=== PATIENT | male | born 1955 | race Caucasian/White ===

== ENCOUNTER 2017-05-20 20:20 | Inpatient (IN) | payer OTHER ==
[2017-05-20 20:44] LABS: #Lymphocytes 2.1 thou/uL (1.20-3.40); #Monocytes 0.7 thou/uL (0.11-0.59); #Neutrophils 5.2 thou/uL (1.40-6.50); %Basophils 0.3 % (0.0-1.0); %Eosinophils 0.5 % (0.0-10.0); %Lymphocytes 26.1 % (21.0-51.0); %Monocytes 8.5 % (0.0-10.0); %Neutrophils 64.6 % (42.0-75.0); Hemoglobin 13.4 g/dL (14.0-18.0); Mean Corpuscular HGB CONC 34.3 g/dL (32.0-36.0); Mean Corpuscular Hemoglobin 32.6 pg (27.0-31.0); Mean Corpuscular Volume 95.1 fl (80.0-94.0); Mean Platelet Volume 7.3 fL (7.4-10.4); Platelet Count 180 thou/uL (130-400); RBC Distribution Width 12.6 % (11.5-14.5); Red Blood Cell (RBC) Count 4.09 mill/uL (4.70-6.10)
[2017-05-20 20:50] LABS: INR-International Normal Ratio 1.1; PTT 28.6 SEC (22.9-36.1); Prothrombin Time 14.2 SEC (12.0-14.7)
[2017-05-20 21:00] LABS: ALT (SGPT) 19 U/L (8-55); AST (SGOT) 19 U/L (5-34); Acetaminophen Less than 6.0 mcg/mL (10.0-30.0); Albumin 4.6 g/dL (3.4-4.8); Alcohol Less than 10 mg/dL (Less than 10); Alkaline Phosphatase 75 U/L (40-150); Anion Gap 14 mmol/L (10-20); BUN (Urea Nitrogen) 11 mg/dL (8.4-25.7); Bilirubin, Total 1.7 mg/dL (0.2-1.2); CK (CPK) 141 U/L (30-200); Calc. Creatinine Clearance 0 mL/min (70-130); Calcium 9.4 mg/dL (7.8-10.44); Carbon Dioxide 22 mmol/L (23-31); Chloride 103 mmol/L (98-107); Estimated GFR-MDRD 60; Globulin 2.8 g/dL (2.4-3.5); Glucose 138 mg/dL (80-115); Lipase 48 U/L (8-78); Magnesium 1.9 mg/dL (1.6-2.6); Potassium 3.8 mmol/L (3.5-5.1); Protein, Total 7.4 g/dL (5.8-8.1); Salicylate Less than 8.0 mg/dL (15.0-30.0); Sodium 135 mmol/L (136-145)
[2017-05-20 21:03] LABS: CKMB 1.2 ng/mL (0-6.6); Troponin I Less than 0.010 ng/mL (< 0.028)
--- NOTE | 2017-05-20 21:20 | RAD ---
SINGLE VIEW OF THE CHEST 05/20/17 COMPARISON: 12/29/07 HISTORY: Weakness and confusion. Headache since yesterday. Altered mental status. FINDINGS: Single view of the chest shows normal sized cardiomediastinal silhouette. The patient is status post sternotomy. There is no evidence of consolidation, mass or pleural effusion. IMPRESSION: No evidence of acute cardiopulmonary disease. POS: [facility]
--- NOTE | 2017-05-20 21:27 | CT ---
CT OF THE BRAIN WITHOUT CONTRAST 05/20/17 COMPARISON: None. HISTORY: Weakness and headache and confusion. TECHNIQUE: Multiple contiguous axial images were obtained in a CT of the brain without contrast. FINDINGS: There are bilateral hyperdense subdural hematomas along the frontal and parietal convexities. These m easure 1.7 cm on the left and 1.8 cm on the right. No downward shift or midline herniation is seen. T here is a small amount of blood along the right tentorium. No interventricular hemorrhage is seen. The calvarium and overlying soft tissues are unremarkable. The visualized paranasal sinuses and masto id air cells are well aerated. IMPRESSION: Bilateral subdural hematomas. Dr. Abad notified of the findings at 8:51 p.m. on 05/20/17. POS: [facility]
[2017-05-20] MEDS ORDERED: Ondansetron ODT 4 MG TAB ONE (22:33)
[2017-05-20] MEDS ORDERED: Ondansetron ODT 4 MG TAB PO PRN (22:45)
[2017-05-20] MEDS ORDERED: Dextrose 50% Abboject 50 ML SYRINGE SLOW IVP PRN (22:45)
[2017-05-20] MEDS ORDERED: Dextrose 5% in Water 1,000 ML IV PRN (22:45)
[2017-05-20] MEDS ORDERED: Morphine 4 MG/ML VIAL SLOW IVP PRN (22:55)
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
[2017-05-21 00:32] LABS: Bilirubin Negative (Negative); Blood, Urine Negative (Negative); Clarity CLEAR (Clear); Glucose, Urine (Dipstick) Negative (Negative); Leukocyte Negative (Negative); Nitrite Negative (Negative); Protein, Urine (Dipstick) Negative (Neg-Trace); pH, Urine 6.5 (5.0-9.0)
[2017-05-21 00:51] LABS: Amphetamine Not Detected (NotDetected); Barbiturates Screen Not Detected (NotDetected); Benzodiazepine Screen Not Detected (NotDetected); Cocaine Metabolite Screen Not Detected (NotDetected); Medtox Control Line Valid? VALID (VALID); Medtox Reader # READER 4; Methadone Not Detected (NotDetected); Methamphetamine Not Detected (NotDetected); Opiate Screen Not Detected (NotDetected); Oxycodone Screen Not Detected (NotDetected); Phencyclidine (PCP) Not Detected (NotDetected); THC/Cannabinoid Screen Not Detected (NotDetected); Tricyclic Screen Not Detected (NotDetected)
[2017-05-21 00:53] VITALS: BMI 27.9
[2017-05-21] MEDS: Sodium Chloride 0.9% 1,000 ML IV SCH ×3 (01:10→15:15)
[2017-05-21] MEDS: Acetaminophen 1,000 MG in Premix Bag 1 BAG IVPB SCH ×3 (01:11→13:29)
[2017-05-21 05:48] LABS: #Eosinphils 0.1 thou/uL (0.0-0.7); #Lymphocytes 1.6 thou/uL (1.20-3.40); #Monocytes 0.5 thou/uL (0.11-0.59); #Neutrophils 2.7 thou/uL (1.40-6.50); %Basophils 0.5 % (0.0-1.0); %Eosinophils 1.5 % (0.0-10.0); %Lymphocytes 33.4 % (21.0-51.0); %Monocytes 10.1 % (0.0-10.0); %Neutrophils 54.5 % (42.0-75.0); Hemoglobin 11.9 g/dL (14.0-18.0); Mean Corpuscular HGB CONC 34.5 g/dL (32.0-36.0); Mean Corpuscular Hemoglobin 32.9 pg (27.0-31.0); Mean Corpuscular Volume 95.4 fl (80.0-94.0); Mean Platelet Volume 7.1 fL (7.4-10.4); Platelet Count 138 thou/uL (130-400); RBC Distribution Width 12.6 % (11.5-14.5); White Blood Cell (WBC) Count 4.9 thou/uL (4.8-10.8)
[2017-05-21 06:03] LABS: Anion Gap 11 mmol/L (10-20); BUN (Urea Nitrogen) 10 mg/dL (8.4-25.7); Calc. Creatinine Clearance 0 mL/min (70-130); Carbon Dioxide 24 mmol/L (23-31); Chloride 106 mmol/L (98-107); Estimated GFR-MDRD 68; Glucose 108 mg/dL (80-115); Potassium 3.9 mmol/L (3.5-5.1); Sodium 137 mmol/L (136-145)
[2017-05-21] MEDS ORDERED: Sodium Chloride 0.9% 0 ML ONE ×2 (06:24→06:29)
[2017-05-21] MEDS ORDERED: Thrombin 5000 UNITS/5 ML VIAL ONE (06:24)
[2017-05-21] MEDS ORDERED: Lidocaine 0.5%/Epinephrine 1:200,000 50 ml Vial ONE ×2 (06:24→06:29)
[2017-05-21] MEDS ORDERED: Bacitracin Zinc Ointment 30 gm TUBE ONE ×2 (06:24→06:29)
[2017-05-21] MEDS ORDERED: CEFAZOLIN/Water 2 GM/20 ML SYRINGE ONE (06:28)
[2017-05-21] MEDS ORDERED: Fentanyl 250 MCG/5 ML VIAL ONE ×2 (07:21→09:00)
[2017-05-21] MEDS ORDERED: Promethazine HCl 25 MG/ML VIAL IM PRN (08:32)
[2017-05-21] MEDS ORDERED: Ondansetron HCl/PF 4 MG/2 ML Vial IVP PRN (08:32)
[2017-05-21] MEDS ORDERED: Promethazine HCl 25 MG/ML VIAL SLOW IVP PRN (08:32)
--- NOTE | 2017-05-21 08:36 | PRG ---
DATE OF SERVICE: 05/21/2017 The patient is seen and examined. I agree with Sherrie Horta'sCATHIE, note. HISTORY OF PRESENT ILLNESS: Mr. Cabrera is a 61-year-old male with a documented trauma approximately 5 weeks ago who was on Plavix and aspirin for his coronary artery disease and has become progressive ly confused over the past 24-48 hours. He has no specific focal findings. CT scan revealed large bi lateral isodense subdural hematomas. ASSESSMENT AND PLAN: The patient has subacute bilateral chronic subdural hematomas that will require surgical drainage. I discussed the indications, alternatives with the patient and his family and th ey expressed understanding and wished to proceed. They understand that it is possible that the evacu ation will be incomplete or he will have recurrence, and ultimately require additional procedures. W e will have to hold Plavix and aspirin indefinitely.
[2017-05-21] MEDS ORDERED: ePHEDrine/0.9% NaCl/PF SYRINGE 50 mg/10 ml ONE (08:37)
[2017-05-21] MEDS ORDERED: Lidocaine 1% PF 5 ML VIAL ONE (08:37)
[2017-05-21] MEDS ORDERED: Propofol 200 MG/20 ML VIAL ONE (08:37)
[2017-05-21] MEDS ORDERED: Ondansetron HCl/PF 4 MG/2 ML Vial ONE (08:37)
--- NOTE | 2017-05-21 08:49 | OP ---
DATE OF PROCEDURE: 05/21/2017 SURGEON: Omid Sharp M.D. PSYCHIATRIC TECH: Sigrid Black PROCEDURE: Bilateral jd hole drainage with chronic subdural hematoma. PROCEDURE IN DETAIL: The patient was brought to the operating room and intubated. He was positioned supine and head in modest extension on a gel-filled donut. Two incisions were made in the mid pupil star line and slightly lateral to this, 2 on the right and 2 on the left and jd holes were placed. The dura was incised and brisk elizabeth subdural hematoma was evacuated from all four jd holes. On t he right, the fluid was under substantial pressure completely evacuated and the subdural space thorou ghly irrigated until clear. We did seem to be some layers from prior membranes deep on the cortical surface and the brain did not seem to expand significantly. On the left, the brain did expand partic ularly posteriorly after drainage and irrigation of the subdural space. Next, drains were left in th e subdural space bilaterally. Gelfoam pledgets were used to cover the jd holes. The wounds were e xtensively irrigated and then closed in anatomic layers.
[2017-05-21] MEDS ORDERED: Famotidine/PF 20 mg/2ml Vial SLOW IVP SCH (09:00)
[2017-05-21] MEDS ORDERED: Fentanyl 100 MCG/2 ML VIAL ONE (09:53)
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
[2017-05-21] MEDS ORDERED: hydrALAZINE 20 MG/ML VIAL ONE (10:16)
[2017-05-21] MEDS: Cyanocobalamin (Vitamin B-12) 1,000 MCG TAB PO SCH (11:30)
[2017-05-21] MEDS: Folic Acid 1 MG TAB PO SCH (11:30)
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
[2017-05-21] MEDS: Ondansetron HCl/PF 4 MG/2 ML Vial IVP PRN (12:07)
[2017-05-21] MEDS: CEFAZOLIN/Water 2 GM/20 ML SYRINGE SLOW IVP SCH ×2 (14:20→21:02)
[2017-05-21] MEDS ORDERED: traMADol HCl 50 MG TAB PO PRN ×2 (14:49)
[2017-05-21] MEDS: Acetaminophen 500 MG TAB PO SCH (19:43)
[2017-05-21] MEDS: Famotidine 20 MG TAB PO SCH (20:49)
[2017-05-21] MEDS: Senokot S 8.6-50 MG TAB PO SCH (20:49)
[2017-05-22] MEDS: Sodium Chloride 0.9% 1,000 ML IV SCH ×2 (00:04→08:29)
[2017-05-22] MEDS: Acetaminophen 500 MG TAB PO SCH ×4 (00:04→18:21)
[2017-05-22] MEDS: Ondansetron HCl/PF 4 MG/2 ML Vial IVP PRN ×3 (01:35→17:34)
[2017-05-22] MEDS: CEFAZOLIN/Water 2 GM/20 ML SYRINGE SLOW IVP SCH ×2 (05:02→13:51)
[2017-05-22] MEDS: hydrALAZINE 20 MG/ML VIAL SLOW IVP PRN ×2 (06:46→13:54)
[2017-05-22] MEDS: Famotidine 20 MG TAB PO SCH ×2 (08:28→22:03)
[2017-05-22] MEDS: Losartan 25 MG TAB PO SCH (08:28)
[2017-05-22] MEDS: Senokot S 8.6-50 MG TAB PO SCH ×2 (08:29→22:05)
[2017-05-22] MEDS: Folic Acid 1 MG TAB PO SCH (08:29)
[2017-05-22] MEDS: Cyanocobalamin (Vitamin B-12) 1,000 MCG TAB PO SCH (08:29)
[2017-05-22] MEDS: Multivitamin W/ Minerals 1 TAB PO SCH (08:29)
--- NOTE | 2017-05-22 08:47 | CT ---
PRELIMINARY REPORT/[facility]/EMERGENCY AFTER HOURS PROCEDURE: EXAM: CT Head Without Intravenous Contrast CLINICAL HISTORY: 61 years old, male; Pain; Headache; Headache not specified; Prior surgery; Surgery date: Postoperativ e (0-2 days); Surgery type: Sdh evacuation; Patient HX: Status post surgery TECHNIQUE: Axial computed tomography images of the head/brain without intravenous contrast. COMPARISON: CT Brain WO Con 2017-05-20 20:41 FINDINGS: Brain: Interval bifrontal jd hole contruction with placement of subdural drains. Although large karli ateral subdural collections persist, they have significantly decreased in size. The majority of the c ollections now are of low density with scattered smaller hemorrhagic components. Mild pneumocephalus. No acute stroke or parenchymal bleed. No midline shift or axial herniation. No hydrocephalus. Ventricles: See above. Bones/joints: See above. Soft tissues: No acute findings. Sinuses: Unremarkable as visualized. No acute sinusitis. Mastoid air cells: Unremarkable as visualized. No mastoid effusion. IMPRESSION: Satisfactory postoperative changes. Decrease in size of subdural collections post drainage / jd hol e construction. No acute stroke. No midline shift or axial herniation. No hydrocephalus. Thank you for allowing us to participate in the care of your patient. Dictated and Authenticated by: Alejandro Sanford MD 05/22/2017 4:11 AM Central Time ([place] & [place]) FINAL REPORT HEAD CT WITHOUT CONTRAST: Date: 05-22-17 Comparison: 05-20-17 History: Evaluate following subdural hematoma evacuation. FINDINGS: The visualized paranasal sinuses/mastoid air cells are well aerated. There are two frontal jd holes present bilaterally, new. Bilateral scalp cutaneous cyndi are seen near the vertex. Bilateral subdural drainage catheters are present. There is bilateral subdural pneu mocephalus anterior to frontal lobes extending to vertex. Acute on chronic bilateral subdural hematom as are present. This subdural collection of mixed attenuation measures up to 1.5 cm in transverse dim ension on the right, decreased from 1.8 cm on the prior exam. Subdural collection of mixed attenuatio n measures 1.4 cm transverse imaging on left, decreased from 1.7 cm. There is hyperdensity in the reg ion of the posterior fossa on the right on Image 11 which suggests blood layering on the tentorium on the right. Continued follow up advised. Stable bifrontal mass effect with flattening of both frontal lobes. IMPRESSION: Large bilateral subdural fluid collections are noted which contain both hypodense fluid and hyperdens e acute blood. Subdural collections are decreased in size since prior exam. Continued follow up advis ed. Probable blood layering on right tentorium. Code QA POS: [facility]
[2017-05-22] MEDS: traMADol HCl 50 MG TAB PO SCH ×3 (08:48→22:04)
[2017-05-22] MEDS: Scopolamine 1.5 mg/72 hour Patch TD SCH (08:50)
[2017-05-22 09:27] LABS: #Lymphocytes 0.5 thou/uL (1.20-3.40); #Monocytes 0.3 thou/uL (0.11-0.59); #Neutrophils 9.1 thou/uL (1.40-6.50); %Eosinophils 0.4 % (0.0-10.0); %Lymphocytes 5.1 % (21.0-51.0); %Monocytes 3.4 % (0.0-10.0); Mean Corpuscular Hemoglobin 31.4 pg (27.0-31.0); Mean Platelet Volume 7.7 fL (7.4-10.4); Platelet Count 171 thou/uL (130-400); RBC Distribution Width 13.1 % (11.5-14.5); Red Blood Cell (RBC) Count 3.81 mill/uL (4.70-6.10)
[2017-05-22 09:36] LABS: Anion Gap 16 mmol/L (10-20); BUN (Urea Nitrogen) 10 mg/dL (8.4-25.7); Calc. Creatinine Clearance 0 mL/min (70-130); Calcium 8.4 mg/dL (7.8-10.44); Carbon Dioxide 13 mmol/L (23-31); Chloride 110 mmol/L (98-107); Estimated GFR-MDRD 75; Glucose 177 mg/dL (80-115); Magnesium 1.9 mg/dL (1.6-2.6); Phosphorus 2.8 mg/dL (2.3-4.7); Potassium 4.1 mmol/L (3.5-5.1); Sodium 135 mmol/L (136-145)
[2017-05-22 09:43] LABS: MDiff Complete? YES; Macrocytosis SLIGHT = 6-15 cells (100X) (0-5/hpf); PLT Morphology Comment Appears Adequate; Polychromasia SLIGHT = 2-3 cells (100X) (0-2/hpf)
[2017-05-22] MEDS: traMADol HCl 50 MG TAB PO PRN ×2 (12:02→18:31)
--- NOTE | 2017-05-22 14:54 | PRG ---
DATE OF SERVICE: 05/22/2017 Mr. Cabrera is now postoperative day #1, having undergone bilateral frontal parietal bur hole placeme nt for bilateral subdural hematoma evacuation. The patient is currently doing well postoperatively. He has two KAILEY drains in place. He denies headache, nausea, vomiting, or blurred vision. No weaknes s in any of the extremities. He follows commands in all 4 extremities. Pupils are equal, round, and reactive bilaterally. Continues to have a Barbara head wrap on and both KAILEY drains are in place. Hi s speech is clear and he is oriented to person, place and time. The plan now as discussed with our trauma services is activity as tolerated. PT, OT and rehab consul ts. More than likely, we will remove the patient's KAILEY drain tomorrow. We will continue Ancef at thi s time. We will also watch for any possible alcohol DTs. Repeat head CT today shows a decrease in b ilateral subdural collections with bilateral KAILEY drains in place. Please call with any questions or c hanges in patient's neurologic status. Otherwise tomorrow, we hope to get the patient to floor and r emove his drains.
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
[2017-05-23] MEDS: CEFAZOLIN/Water 2 GM/20 ML SYRINGE SLOW IVP SCH ×5 (00:47→21:35)
[2017-05-23] MEDS: Acetaminophen 500 MG TAB PO SCH ×4 (00:47→17:49)
[2017-05-23] MEDS: Ondansetron HCl/PF 4 MG/2 ML Vial IVP PRN (04:15)
[2017-05-23] MEDS: traMADol HCl 50 MG TAB PO SCH ×4 (04:16→20:20)
[2017-05-23 04:57] LABS: Anion Gap 12 mmol/L (10-20); BUN (Urea Nitrogen) 11 mg/dL (8.4-25.7); Calc. Creatinine Clearance 0 mL/min (70-130); Carbon Dioxide 22 mmol/L (23-31); Chloride 107 mmol/L (98-107); Estimated GFR-MDRD 77; Glucose 132 mg/dL (80-115); Magnesium 2.2 mg/dL (1.6-2.6); Phosphorus 2.6 mg/dL (2.3-4.7); Potassium 3.8 mmol/L (3.5-5.1); Sodium 137 mmol/L (136-145)
[2017-05-23] MEDS: hydrALAZINE 20 MG/ML VIAL SLOW IVP PRN (05:04)
[2017-05-23] MEDS ORDERED: Potassium Chloride 20 MEQ TAB PO SCH (07:15)
[2017-05-23] MEDS: Losartan 25 MG TAB PO SCH (08:20)
[2017-05-23] MEDS: Cyanocobalamin (Vitamin B-12) 1,000 MCG TAB PO SCH (08:21)
[2017-05-23] MEDS: Senokot S 8.6-50 MG TAB PO SCH ×2 (08:22→20:19)
[2017-05-23] MEDS: Folic Acid 1 MG TAB PO SCH (08:22)
[2017-05-23] MEDS: Famotidine 20 MG TAB PO SCH ×2 (08:22→20:20)
[2017-05-23] MEDS: Multivitamin W/ Minerals 1 TAB PO SCH (08:22)
[2017-05-23] MEDS ORDERED: Potassium Phosphate 20 MMOL in Sodium Chloride 0.9% 250 ML 250 ML IVPB SCH (08:30)
[2017-05-23] MEDS: Amlodipine 5 MG TAB PO SCH (08:34)
[2017-05-23] MEDS: Sodium Chloride 1 GM TAB PO SCH (08:55)
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
[2017-05-24] MEDS: Acetaminophen 500 MG TAB PO SCH ×4 (00:17→17:34)
[2017-05-24] MEDS: traMADol HCl 50 MG TAB PO SCH ×4 (03:22→20:48)
[2017-05-24] MEDS: CEFAZOLIN/Water 2 GM/20 ML SYRINGE SLOW IVP SCH ×3 (06:13→20:49)
--- NOTE | 2017-05-24 08:24 | PRG ---
DATE OF SERVICE: 05/24/2017 Mr. Cabrera is now postoperative day #3, having undergone bilateral bur hole placement for evacuation of chronic subdural hematoma. The patient was transferred to the floor yesterday and is doing well today. He has some intermittent nausea with moving too quickly in his bed. Otherwise, he has no minerva n complaints. He does have slurred speech, but this may be baseline given a speech impediment. He f ollows commands in all 4 extremities and is oriented to person, place and time. He is actually more conversant and alert today than he was yesterday. Overall, he is improving. I discussed his case in great detail with his son at bedside. At this time, his issue now is disposition. Trauma is following the patient and we appreciate their input. He may continue to work with PT, OT and probably plan for discharge on Friday when arrangemen ts have been made. From a neurosurgical standpoint, he is stable for discharge at any time. Please call with any questions or changes in the patient's neurologic status. Otherwise, he is stable and d oing well.
[2017-05-24] MEDS: Amlodipine 5 MG TAB PO SCH (10:09)
[2017-05-24] MEDS: Folic Acid 1 MG TAB PO SCH (10:09)
[2017-05-24] MEDS: Multivitamin W/ Minerals 1 TAB PO SCH (10:11)
[2017-05-24] MEDS: Losartan 25 MG TAB PO SCH (10:11)
[2017-05-24] MEDS: Cyanocobalamin (Vitamin B-12) 1,000 MCG TAB PO SCH (10:12)
[2017-05-24] MEDS: Famotidine 20 MG TAB PO SCH ×2 (10:12→20:46)
[2017-05-24] MEDS: Senokot S 8.6-50 MG TAB PO SCH ×2 (10:13→20:46)
[2017-05-24] MEDS: Sodium Chloride 1 GM TAB PO SCH (10:24)
--- NOTE | 2017-05-24 13:11 | PRG ---
DATE OF SERVICE: 05/24/2017 SUBJECTIVE: I visited with Mr. Cabrera. He is doing quite well. Postoperative issues of nausea, pa in and confusion are resolving. He is much improved from what it was preoperatively with regard to h is mental status. His walking instability remained a significant issue and he is requiring substanti al assist in this regard. Neurosurgically, he is ready to leave the hospital, but his balance and walking status will not likel y allow him to go directly home. I understand the plans are being made for either rehab or swing bed in [place] and I think this is quite reasonable. I will arrange a followup head CT as well as skin staple removal in 2 weeks. He should hold all anti platelet agents or other blood thinners until that time, at which point we will discuss further.
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
[2017-05-24] MEDS: Ondansetron HCl/PF 4 MG/2 ML Vial IVP PRN (19:34)
[2017-05-25] MEDS: Acetaminophen 500 MG TAB PO SCH ×4 (00:14→17:24)
[2017-05-25] MEDS: traMADol HCl 50 MG TAB PO SCH ×4 (03:20→21:36)
[2017-05-25] MEDS: CEFAZOLIN/Water 2 GM/20 ML SYRINGE SLOW IVP SCH ×3 (05:31→21:38)
[2017-05-25] MEDS ORDERED: Magnesium Citrate 300 ML BOT PO SCH (08:30)
[2017-05-25] MEDS: Bisacodyl 10 MG SUPP PR SCH (09:06)
[2017-05-25] MEDS: Losartan 25 MG TAB PO SCH (09:08)
[2017-05-25] MEDS: Senokot S 8.6-50 MG TAB PO SCH ×2 (09:08→21:37)
[2017-05-25] MEDS: Amlodipine 5 MG TAB PO SCH (09:09)
[2017-05-25] MEDS: Polyethylene Glycol 3350 17 GM Packet PO SCH (09:09)
[2017-05-25] MEDS: Scopolamine 1.5 mg/72 hour Patch TD SCH (09:10)
[2017-05-25] MEDS: Cyanocobalamin (Vitamin B-12) 1,000 MCG TAB PO SCH (09:10)
[2017-05-25] MEDS: Multivitamin W/ Minerals 1 TAB PO SCH (09:10)
[2017-05-25] MEDS: Folic Acid 1 MG TAB PO SCH (09:10)
[2017-05-25] MEDS: Famotidine 20 MG TAB PO SCH ×2 (09:10→21:37)
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
[2017-05-25] MEDS: Sodium Chloride 1 GM TAB PO SCH (10:54)
[2017-05-26] MEDS: Acetaminophen 500 MG TAB PO SCH ×4 (00:05→17:10)
[2017-05-26] MEDS: traMADol HCl 50 MG TAB PO SCH ×4 (03:17→21:46)
[2017-05-26] MEDS: CEFAZOLIN/Water 2 GM/20 ML SYRINGE SLOW IVP SCH ×3 (05:47→22:18)
[2017-05-26] MEDS: Cyanocobalamin (Vitamin B-12) 1,000 MCG TAB PO SCH (09:22)
[2017-05-26] MEDS: Multivitamin W/ Minerals 1 TAB PO SCH (09:23)
[2017-05-26] MEDS: Famotidine 20 MG TAB PO SCH ×2 (09:24→21:46)
[2017-05-26] MEDS: Folic Acid 1 MG TAB PO SCH (09:24)
[2017-05-26] MEDS: Bisacodyl 10 MG SUPP PR SCH (09:24)
[2017-05-26] MEDS: Amlodipine 5 MG TAB PO SCH (09:24)
[2017-05-26] MEDS: Senokot S 8.6-50 MG TAB PO SCH ×2 (09:25→21:52)
[2017-05-26] MEDS: Polyethylene Glycol 3350 17 GM Packet PO SCH (09:25)
[2017-05-26] MEDS: Losartan 25 MG TAB PO SCH (15:33)
[2017-05-26] MEDS: Sodium Chloride 1 GM TAB PO SCH (17:11)
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
[2017-05-27] MEDS: Acetaminophen 500 MG TAB PO SCH ×5 (01:02→23:19)
[2017-05-27] MEDS: traMADol HCl 50 MG TAB PO SCH ×4 (03:43→21:05)
[2017-05-27] MEDS: CEFAZOLIN/Water 2 GM/20 ML SYRINGE SLOW IVP SCH ×3 (06:35→21:04)
[2017-05-27] MEDS: Amlodipine 5 MG TAB PO SCH (09:19)
[2017-05-27] MEDS: Losartan 25 MG TAB PO SCH (09:19)
[2017-05-27] MEDS: Folic Acid 1 MG TAB PO SCH (09:20)
[2017-05-27] MEDS: Cyanocobalamin (Vitamin B-12) 1,000 MCG TAB PO SCH (09:20)
[2017-05-27] MEDS: Multivitamin W/ Minerals 1 TAB PO SCH (09:20)
[2017-05-27] MEDS: Famotidine 20 MG TAB PO SCH ×2 (09:20→21:04)
[2017-05-27] MEDS: Sodium Chloride 1 GM TAB PO SCH (09:24)
[2017-05-27] MEDS: Bisacodyl 10 MG SUPP PR SCH (09:27)
[2017-05-27] MEDS: Polyethylene Glycol 3350 17 GM Packet PO SCH (09:28)
[2017-05-27] MEDS: Senokot S 8.6-50 MG TAB PO SCH ×2 (09:28→20:19)
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
[2017-05-28] MEDS: traMADol HCl 50 MG TAB PO SCH ×2 (02:38→08:56)
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
[2017-05-28] MEDS: Acetaminophen 500 MG TAB PO SCH ×2 (05:02→13:21)
[2017-05-28] MEDS: CEFAZOLIN/Water 2 GM/20 ML SYRINGE SLOW IVP SCH (05:02)
[2017-05-28] MEDS: Multivitamin W/ Minerals 1 TAB PO SCH (08:53)
[2017-05-28] MEDS: Folic Acid 1 MG TAB PO SCH (08:53)
[2017-05-28] MEDS: Cyanocobalamin (Vitamin B-12) 1,000 MCG TAB PO SCH (08:53)
[2017-05-28] MEDS: Senokot S 8.6-50 MG TAB PO SCH (08:54)
[2017-05-28] MEDS: Amlodipine 5 MG TAB PO SCH (08:54)
[2017-05-28] MEDS: Famotidine 20 MG TAB PO SCH (08:55)
[2017-05-28] MEDS: Scopolamine 1.5 mg/72 hour Patch TD SCH (08:59)
[2017-05-28] MEDS: Polyethylene Glycol 3350 17 GM Packet PO SCH (09:02)
[2017-05-28] MEDS: Bisacodyl 10 MG SUPP PR SCH (09:02)
[2017-05-28] MEDS: Sodium Chloride 1 GM TAB PO SCH (10:23)
[2017-05-28] MEDS: Losartan 25 MG TAB PO SCH (10:23)
[2017-05-28 11:59] VITALS: BP 126/74; TEMP 98.5
--- NOTE | 2017-05-28 15:08 | EKG ---
Test Reason : Blood Pressure : / mmHG Vent. Rate : 063 BPM Atrial Rate : 063 BPM P-R Int : 170 ms QRS Dur : 098 ms QT Int : 404 ms P-R-T Axes : 073 031 -48 degrees QTc Int : 413 ms Normal sinus rhythm Possible Left atrial enlargement Incomplete right bundle branch block Nonspecific T wave abnormality Abnormal ECG Confirmed by SHARON MARRERO D.O. ([id number]), loan expeditor AURY BENSON ([id number]) on 05/28/2017 3:07:55 PM Referred By: Confirmed By:SHARON MARRERO D.O.
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
== END 2017-05-28 14:22 | DRG 27 ==
LOC: ERS 20:20 → SJJU 05-21 00:17 → CCU 05-21 09:24 → 2SE 05-23 15:54
PROVIDERS: ADMIT Surgery; ATTEND Surgery
PROC: 009430Z Drainage of Intracranial Subdural Space with Drainage Device, Percutaneous Approach (ICD-10-PCS; principal; 2017-05-21)
DX: S06.5X0A Traumatic subdural hemorrhage without loss of consciousness, initial encounter (principal); F07.81 Postconcussional syndrome; E78.5 Hyperlipidemia, unspecified; I25.10 Atherosclerotic heart disease of native coronary artery without angina pectoris; I10 Essential (primary) hypertension; Z95.1 Presence of aortocoronary bypass graft; Z87.891 Personal history of nicotine dependence; F10.10 Alcohol abuse, uncomplicated
CPT/HCPCS: 36415; 36416; 70450; 71045; 80048; 80053; 80306; 80307; 81003; 82550; 82553; 83605; 83690; 83735; 83880; 84100; 84443; 84484; 85025; 85610; 85730; 86850; 86900; 86901; 93005; A4216; G8978-GP-CJ; G8979-GP-CI; G8987-GO-CK; G8988-GO-CI; G9165-GN-CK; G9166-GN-CH; J0131; J0360; J2001; J2270; J2405; J2704; J3010; J3475; J3490; J7050; Q0162

== ENCOUNTER 2017-06-10 10:25 | Outpatient (CLI) | payer OTHER ==
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
== END 2017-06-10 10:26 | disposition home or self-care (01) ==
LOC: TBSIIMAG 10:25
PROVIDERS: ATTEND Neurological Surgery
DX: S06.5X0D Traumatic subdural hemorrhage without loss of consciousness, subsequent encounter (principal); G93.89 Other specified disorders of brain
CPT/HCPCS: 70450

== ENCOUNTER 2017-07-08 15:01 | Outpatient (CLI) | payer OTHER ==
--- NOTE | 2017-07-08 15:45 | CT ---
CT BRAIN WITHOUT CONTRAST: Date: 07/08/17 INDICATION: Follow-up subdural hematomas. COMPARISON: Prior exam dated 06/10/17. FINDINGS: The subdural hematomas overlying the convexities have slightly decreased in prominence. The collectio n on the right now measures 1.3 cm, where it previously measured 1.6 cm. The collection on the left n ow measures 4.0 mm, where it previously measured 1.1 cm. No midline shift is evident. Chronic ischemi c change is similar. No acute infarct is evident. No hydrocephalus is present. Mastoid air cells are clear. The bilateral frontoparietal bur holes are similar. IMPRESSION: Decrease in size of the bilateral cerebral convexity subdural hematomas. POS: DARRELL
== END 2017-07-08 15:02 | disposition home or self-care (01) ==
LOC: TBSIIMAG 15:01
PROVIDERS: ATTEND Neurological Surgery
DX: S06.5X9D Traumatic subdural hemorrhage with loss of consciousness of unspecified duration, subsequent encounter (principal)
CPT/HCPCS: 70450

== ENCOUNTER 2017-10-07 13:59 | Outpatient (CLI) | payer OTHER ==
--- NOTE | 2017-10-07 15:35 | CT ---
CT BRAIN: History: Subdural hematoma. Date: 10-07-17 Comparison: 07-08-17 FINDINGS: Noncontrast enhanced CT images of the brain obtained and demonstrate bilateral evacuation of the fron nancy subdural hematomas. Previous external compression of the brain by this dural collection has resol trev. No definite evidence of hydrocephalus seen. No evidence of acute subdural epidural hematoma is s een. Some deep white matter ischemic changes are seen. IMPRESSION: Post-surgical changes with resolved bilateral frontal subdural hematomas. POS: CUHCKY
== END 2017-10-07 14:00 | disposition home or self-care (01) ==
LOC: TBSIIMAG 13:59
PROVIDERS: ATTEND Neurological Surgery
DX: I62.03 Nontraumatic chronic subdural hemorrhage (principal); Z98.890 Other specified postprocedural states
CPT/HCPCS: 70450

== ENCOUNTER 2018-01-23 19:30 | Outpatient (CLI) | payer OTHER | END 2018-01-23 19:31 | disposition home or self-care (01) | LOC: SLEEPLAB 19:30 | PROVIDERS: ATTEND Family Medicine | DX: G47.33 Obstructive sleep apnea (adult) (pediatric) (principal); R53.83 Other fatigue; R09.89 Other specified symptoms and signs involving the circulatory and respiratory systems; R06.83 Snoring; G47.31 Primary central sleep apnea | CPT/HCPCS: 95811 ==

== ENCOUNTER 2018-02-18 19:30 | Outpatient (CLI) | payer OTHER | END 2018-02-18 19:31 | disposition home or self-care (01) | LOC: SLEEPLAB 19:30 | PROVIDERS: ATTEND Family Medicine | DX: G47.30 Sleep apnea, unspecified (principal); G47.33 Obstructive sleep apnea (adult) (pediatric); R53.83 Other fatigue; R09.89 Other specified symptoms and signs involving the circulatory and respiratory systems; R06.83 Snoring; G47.10 Hypersomnia, unspecified; G47.31 Primary central sleep apnea; E66.9 Obesity, unspecified; Z68.29 Body mass index [BMI] 29.0-29.9, adult | CPT/HCPCS: 95811 ==

== ENCOUNTER 2024-03-10 12:38 | Outpatient (CLI) | payer OTHER ==
[~2024-03-10 12:38] MED LIST: Iopamidol 370 76% 100 ML VIAL ONE
== END 2024-03-10 12:39 | disposition home or self-care (01) ==
LOC: CT 12:38
PROVIDERS: ATTEND Psychiatry & Neurology Neurology
DX: R93.89 Abnormal findings on diagnostic imaging of other specified body structures (principal); I67.2 Cerebral atherosclerosis; I77.1 Stricture of artery
CPT/HCPCS: 36415; 70496; 70498; 82565